=== PATIENT | male | born 1965 | race Caucasian/White ===

== ENCOUNTER → 2023-10-30 14:57 | Outpatient (REF) | payer OTHER, SELFPAY | LOC: RCS 14:57 | PROVIDERS: ATTENDING PHYSICIAN Physical Medicine & Rehabilitation; FAMILY PHYSICIAN Internal Medicine | DX: I45.81 Long QT syndrome (principal) | CPT/HCPCS: 93005 ==

== ENCOUNTER → 2025-01-24 12:48 | Outpatient (REF) | payer OTHER, SELFPAY | LOC: RCS 12:48 | PROVIDERS: ATTENDING PHYSICIAN Student in an Organized Health Care Education/Training Program; FAMILY PHYSICIAN Internal Medicine | DX: I45.81 Long QT syndrome (principal) | CPT/HCPCS: 93005 ==